=== PATIENT | male | born 1975 | race Caucasian/White ===

== ENCOUNTER → 2020-04-08 | Outpatient (CLI) | payer OTHER ==
[~2020-04-08] MED LIST: HYDROCODON-ACE1 EAC6 PO; IBU800 MG PO; KEFLEX500 MG PO; LITE COAT ASPI325 MG PO; PERCOCET 10-321 EACH PO; VITAMIN C500 M4 PO; VITAMIN D21250 MCG PO
== END ==
LOC: KOH-I 10:16
DX: S92.001D Unspecified fracture of right calcaneus, subsequent encounter for fracture with routine healing (principal); Z96.89 Presence of other specified functional implants
CPT/HCPCS: 73650

== ENCOUNTER → 2020-04-16 | Outpatient (CLI) | payer OTHER | LOC: KOH-I 13:57 | DX: S92.001D Unspecified fracture of right calcaneus, subsequent encounter for fracture with routine healing (principal); X58.XXXD Exposure to other specified factors, subsequent encounter | CPT/HCPCS: 73700 ==

== ENCOUNTER → 2020-07-15 | Outpatient (CLI) | payer OTHER | LOC: KOH-I 09:07 | DX: Z47.89 Encounter for other orthopedic aftercare (principal) | CPT/HCPCS: 73650 ==

== ENCOUNTER → 2020-08-26 | Outpatient (CLI) | payer OTHER | LOC: KOH-I 09:07 | DX: S92.001A Unspecified fracture of right calcaneus, initial encounter for closed fracture (principal) | CPT/HCPCS: 73630; 73650 ==

== ENCOUNTER → 2020-09-09 | Outpatient (CLI) | payer OTHER | LOC: KOH-I 08:08 | DX: S92.351A Displaced fracture of fifth metatarsal bone, right foot, initial encounter for closed fracture (principal); S96.811A Strain of other specified muscles and tendons at ankle and foot level, right foot, initial encounter; M67.472 Ganglion, left ankle and foot | CPT/HCPCS: 73718 ==